=== PATIENT | female | born 1965 ===

== ENCOUNTER 2017-07-04 18:15 | Emergency (ER) | payer MEDICAID ==
[2017-07-04 18:19] VITALS: TEMP 98.2; O2SAT 98
--- NOTE | 2017-07-04 19:38 | ED PDOC ---
HPI: Psych/Substance Abuse Time Seen by Provider: 07/04/17 18:41 Chief Complaint (Nursing): Psychiatric Evaluation Chief Complaint (Provider): Psychiatric Evaluation History Per: Patient History/Exam Limitations: no limitations Onset/Duration Of Symptoms: Days (x1) Current Symptoms Are (Timing): Still Present Additional History Per: EMS, Law Enforcement Additional Complaint(s): Lelia Tobias is a 51 y/o female who was brought to the ER by police via ambulance for psychiatric evaluation. Patient was in an argument with her daughter earlier today. Denies feelings of depression, suicidal ideation, and homicidal ideation. States she ran out of Effexor medication recently. Denies any other medical complaints. She did scratch herself on the arms, but states this was not in attempt to hurt herself. PMD: None Past Medical History Reviewed: Historical Data, Nursing Documentation, Vital Signs Vital Signs: Last Vital Signs Temp 98.2 F 07/04/17 18:17 Pulse 94 H 07/04/17 18:17 Resp 18 07/04/17 18:17 BP 159/114 H 07/04/17 18:17 Pulse Ox 98 07/04/17 18:17 - Medical History PMH: Anemia, Arthritis, Asthma, Back Problems (Sciatica), Bronchitis, Depression , HTN, Hypercholesterolemia - Surgical History Surgical History: No Surg Hx - Family History Family History: States: Unknown Family Hx - Immunization History Hx Tetanus Toxoid Vaccination: No Hx Influenza Vaccination: No Hx Pneumococcal Vaccination: No - Home Medications Home Medications: Ambulatory Orders Medication Instructions Recorded Atorvastatin [Lipitor] 20 mg PO DAILY 03/08/17 Cyclobenzaprine [Cyclobenzaprine 10 mg PO TID #21 tab 03/08/17 HCl] Naproxen 500 mg PO Q12 03/08/17 Omeprazole 40 mg PO DAILY 03/08/17 Valsartan/Hydrochlorothiazide 1 tab PO DAILY 03/08/17 [Valsartan and Hydrochlorothiazide 25 mg-320 M] Venlafaxine HCl [Venlafaxine HCl 150 mg PO DAILY 03/08/17 ER] Zolpidem Tartrate 5 mg PO HS PRN 03/08/17 - Allergies Allergies/Adverse Reactions: Allergies Allergy/AdvReac Type Severity Reaction Status Date / Time No Known Allergies Allergy Verified 07/04/17 18:17 Review of Systems ROS Statement: Except As Marked, All Systems Reviewed And Found Negative Psych: Negative for: Depression, Suicidal ideation (and homicidal ideation) Physical Exam - Reviewed Nursing Documentation Reviewed: Yes Vital Signs Reviewed: Yes - Physical Exam Appears: Positive for: Non-toxic, No Acute Distress Head Exam: Positive for: ATRAUMATIC, NORMOCEPHALIC Skin: Positive for: Normal Color, Warm, Dry Eye Exam: Positive for: EOMI, Normal appearance, PERRL Neck: Positive for: Normal, Painless ROM Cardiovascular/Chest: Positive for: Regular Rate, Rhythm. Negative for: Murmur Respiratory: Positive for: Normal Breath Sounds. Negative for: Accessory Muscle Use, Respiratory Distress Gastrointestinal/Abdominal: Positive for: Normal Exam, Soft. Negative for: Tenderness Extremity: Positive for: Normal ROM, Other (Superficial scratch abrasions to the forearms bilaterally, no lacerations). Negative for: Deformity Neurologic/Psych: Positive for: Alert, Oriented - ECG O2 Sat by Pulse Oximetry: 98 (RA) Pulse Ox Interpretation: Normal Medical Decision Making Medical Decision Making: Initial Impression: Depression, Anger Management Problems Time: 19:29 Initial Plan: * Patient will be evaluated by crisis Time: 21:26 Discussed with table worker packager. Patient will be discharged home as per Dr. Stone. Clinical Impression: Depression Scribe Attestation: Documented by Isabella Potts, acting as a scribe for John Alvarez MD Provider Scribe Attestation: All medical record entries made by the Scribe were at my direction and personally dictated by me. I have reviewed the chart and agree that the record accurately reflects my personal performance of the history, physical exam, medical decision making, and the department course for this patient. I have also personally directed, reviewed, and agree with the discharge instructions and disposition. Disposition - Clinical Impression Clinical Impression: Depression - Patient ED Disposition Is Patient to be Admitted: No Doctor Will See Patient In The: Office Counseled Patient/Family Regarding: Studies Performed, Diagnosis, Need For Followup - Disposition Referrals: Community Mental Health [Outside] Disposition: Routine/Home Disposition Time: 21:26 Condition: STABLE Additional Instructions: Follow up with your PCP in 2-3 days. Instructions: Depression (ED) Print Language: JAPANESE - POA Present On Arrival: None
[2017-07-04 21:35] VITALS: BP 128/80; PULSE 72; RESP 16
== END 2017-07-04 21:34 | disposition home or self-care (01) ==
LOC: H.ER 18:15
DX: F32.9 Major depressive disorder, single episode, unspecified (principal); E78.00 Pure hypercholesterolemia, unspecified; I10 Essential (primary) hypertension; J45.909 Unspecified asthma, uncomplicated